=== PATIENT | male | born 1960 | race Caucasian/White ===

== ENCOUNTER 2017-04-25 19:48 | Emergency (ER) | payer OTHER ==
[~2017-04-25] VITALS: Ht 177.8 cm; Wt 67.5 kg
[2017-04-25 20:35] VITALS: Ht 177.8 cm; Wt 67.5 kg
[2017-04-26] MEDS ORDERED: FAMOTIDINE 20 MG INJ IV STA (00:11)
[2017-04-26] MEDS ORDERED: SOD CHLORIDE 0.9% 500 ML IV STA (00:11)
[2017-04-26] MEDS ORDERED: LIDOCAINE/MYLANTA 40 ML BTL PO STA (00:11)
--- NOTE | 2017-04-26 00:16 | ERD ---
ER Documentation Chief Complaint Date/Time DATE: 04/26/17 TIME: 00:12 Chief Complaint abd pain for few days been drinking everyday HPI 57-year-old male who presents with epigastric abdominal discomfort radiating to the back for approximately 2-3 days. He states his last drink was 5 days ago and he was binge drinking prior to then. He denies history of pancreatitis. No hematemesis no melena. The abdominal discomfort is mild at this point. He denies any shaking tremors or seizure. ROS All systems reviewed and are negative except as per history of present illness. Medications Home Meds Active Scripts Famotidine* (Pepcid*) 20 Mg Tablet, 20 MG PO BID, #20 TAB Prov:CONNIE GONZALES MD 04/26/17 Reported Medications [None] No Conflict Check 08/28/10 Allergies Allergies: Coded Allergies: No Known Allergies (Verified Allergy, Mild, 08/28/10) PMhx/Soc History of Surgery: No Anesthesia Reaction: No Hx Neurological Disorder: No Hx Respiratory Disorders: No Hx Cardiac Disorders: No Hx Psychiatric Problems: No Hx Miscellaneous Medical Probl: No Hx Alcohol Use: Yes Hx Substance Use: Yes Hx Tobacco Use: Yes FmHx Family History: No diabetes Physical Exam Vitals Vital Signs Date Time Temp Pulse Resp B/P Pulse Ox O2 Delivery O2 Flow Rate FiO2 04/25/17 20:35 98.5 60 18 114/56 99 Physical Exam General: Well developed, well nourished, no acute distress Head: Normocephalic, atraumatic. Eyes: Pupils equally reactive, EOM intact ENT: Moist mucous membranes Neck: Supple, no lymphadenopathy Respiratory: Lungs clear bilaterally, no distress Cardiovascular: RRR, no murmurs, rubs, or gallops Abdominal: Soft, mild epigastric tenderness to palpation without rebound or guarding, no peritonitis, non-distended, no peritoneal signs : Deferred MSK: No edema, no unilateral swelling, 5/5 strength Neurologic: Alert and oriented, moving all extremities, normal speech, no focal weakness, no cerebellar signs Skin: No rash Psych: Normal mood Result Diagram: 04/26/17 0030 04/26/17 0030 Results 24 hrs Laboratory Tests Test 04/26/17 00:30 White Blood Count 7.910^3/ul Red Blood Count 4.0510^6/ul Hemoglobin 14.5g/dl Hematocrit 42.4% Mean Corpuscular Volume 104.7fl Mean Corpuscular Hemoglobin 35.8pg Mean Corpuscular Hemoglobin Concent 34.2g/dl Red Cell Distribution Width 11.9% Platelet Count 67379^3/UL Mean Platelet Volume 9.7fl Neutrophils % 54.6% Lymphocytes % 33.4% Monocytes % 8.3% Eosinophils % 2.6% Basophils % 0.6% Nucleated Red Blood Cells % 0.0/100WBC Neutrophils # (Manual) 410^3/ul Lymphocytes # 2.710^3/ul Monocytes # 0.710^3/ul Eosinophils # 0.210^3/ul Basophils # 0.110^3/ul Nucleated Red Blood Cells # 0.010^3/ul Sodium Level 139mmol/L Potassium Level 4.1mmol/L Chloride Level 107mmol/L Carbon Dioxide Level 25mmol/L Anion Gap 11 Blood Urea Nitrogen 16mg/dl Creatinine 0.93mg/dl Glucose Level 89mg/dl Calcium Level 8.9mg/dl Total Bilirubin 0.0mg/dl Direct Bilirubin 0.00mg/dl Indirect Bilirubin 0.0mg/dl Aspartate Amino Transf (AST/SGOT) 28IU/L Alanine Aminotransferase (ALT/SGPT) 34IU/L Alkaline Phosphatase 105IU/L Total Protein 6.6g/dl Albumin 3.7g/dl Globulin 2.90g/dl Albumin/Globulin Ratio 1.27 Lipase 148U/L Current Medications Medications (Trade) Dose Ordered Sig/Jt Route PRN Reason Start Time Stop Time Status Last Admin Dose Admin Sodium Chloride (NS) 500 ml @ 500 mls/hr Q1H STAT IV 04/26/17 00:11 04/26/17 01:10 DC 04/26/17 00:11 Famotidine (Pepcid Iv) 20 mg ONCE STAT IV 04/26/17 00:11 04/26/17 00:13 DC 04/26/17 00:11 Miscellaneous Medication (Gi Cocktail (2)) 40 ml ONCE STAT PO 04/26/17 00:11 04/26/17 00:13 DC 04/26/17 00:11 Thiamine HCl (Vitamin B1) 100 mg ONCE ONCE PO 04/26/17 00:30 04/26/17 00:31 DC 04/26/17 01:12 Folic Acid (Folic Acid) 1 mg ONCE ONCE PO 04/26/17 00:30 04/26/17 00:31 DC 04/26/17 01:12 Procedures/MDM LAB INTERPRETATION: No evidence of transaminitis or lipase elevation MEDICAL DECISION MAKING: The patient presents with epigastric abdominal pain a rating to the back with a history of alcohol abuse. This is concerning for possible pancreatitis versus alcoholic gastritis. The patient is no evidence of perforated viscus and a benign abdominal exam. No indication for CT imaging of the abdomen or pelvis. No signs or symptoms concerning for GI bleed. The patient will benefit from laboratory testing to rule out pancreatitis. He will benefit from IV fluids, multivitamin. GI cocktail also appropriate. Additionally, the patient states that he has resources including AA and outpatient detox centers. He does not require this information. ER COURSE: Patient given IV fluids, GI cocktail, multivitamin including thiamine and folic acid. Laboratory values do not suggest pancreatitis. The patient has improved symptoms. Presentation most consistent with alcoholic gastritis. Outpatient management appropriate. I kept the patient and/or family informed of laboratory and diagnostic imaging results throughout the emergency room course. DISPOSITION PLAN: We discussed follow up with the patient's primary care doctor within 24 to 48 hours as needed. We also discussed return to the emergency room for worsening symptoms or worsening condition. Outpatient referral: [None required] Discharge Medications: Pepcid Departure Diagnosis: Primary Impression: Alcoholic gastritis Chronicity: acute Gastritis bleeding: without bleeding Qualified Code: K29.20 - Acute alcoholic gastritis without hemorrhage Additional Impression: Alcohol abuse Condition: Stable CONNIE GONZALES MD Apr 26, 2017 00:14
[2017-04-26] MEDS ORDERED: FOLIC ACID 1 MG TAB PO ONE (00:30)
[2017-04-26] MEDS ORDERED: THIAMINE 100 MG TAB PO ONE (00:30)
[2017-04-26 00:45] LABS: BASOPHIL # 0.1 10^3/ul (0.0-0.1); BASOPHILS % 0.6 % (0.0-2.0); EOSINOPHILS # 0.2 10^3/ul (0.0-0.5); EOSINOPHILS % 2.6 % (0.0-7.0); HEMATOCRIT 42.4 % (42.0-52.0); HEMOGLOBIN 14.5 g/dl (14.0-18.0); LYMPHOCYTES # 2.7 10^3/ul (0.8-2.9); LYMPHOCYTES % 33.4 % (15.0-51.0); MEAN CORPUSCULAR HEMOGLOBIN 35.8 pg (29.0-33.0); MEAN CORPUSCULAR HGB CONC 34.2 g/dl (32.0-37.0); MEAN CORPUSCULAR VOLUME 104.7 fl (82.0-101.0); MEAN PLATELET VOLUME 9.7 fl (7.4-10.4); MONOCYTE # 0.7 10^3/ul (0.3-0.9); MONOCYTES % 8.3 % (0.0-11.0); NEUTROPHILS % 54.6 % (39.0-77.0); PLATELET COUNT 310 10^3/UL (140-415); RED BLOOD COUNT 4.05 10^6/ul (4.70-6.10); RED CELL DISTRIBUTION WIDTH 11.9 % (11.5-14.5); WHITE BLOOD COUNT 7.9 10^3/ul (4.8-10.8)
[2017-04-26 01:40] LABS: ALBUMIN 3.7 g/dl (3.3-4.9); ALBUMIN/GLOBULIN RATIO 1.27; CALCIUM 8.9 mg/dl (8.4-10.2); CREATININE 0.93 mg/dl (0.61-1.24); POTASSIUM 4.1 mmol/L (3.5-5.1); TOTAL PROTEIN 6.6 g/dl (6.1-8.1)
[2017-04-26] MEDS ORDERED: FAMO-96 PO (01:52)
[2017-04-26 02:26] VITALS: BP 126/60; PULSE 78; RESP 17; TEMP 98.1
== END 2017-04-26 02:52 | disposition home or self-care (01) ==
LOC: E/R 19:48
DX: K29.20 Alcoholic gastritis without bleeding (principal); F10.10 Alcohol abuse, uncomplicated; Z87.891 Personal history of nicotine dependence
CPT/HCPCS: 36415; 80053; 83690; 85025; 96374; J7040; Z7502; Z7610